=== PATIENT | male | born 1955 | race Hispanic/Latino ===

== ENCOUNTER 2017-09-10 06:47 | Day surgery (SDC) | payer MEDICARE, OTHER ==
[2017-09-03 09:20] VITALS: BMI 29.0
[2017-09-10] MEDS ORDERED: Propofol 10 mg/ml Inj (20 ML) ONE (08:01)
[2017-09-10] MEDS ORDERED: Sodium Chloride 0.9% 1,000 ML IV SCH ×2 (09:15→09:30)
[2017-09-10 09:59] VITALS: BP 125/75; PULSE 60; RESP 19; TEMP 97.6; O2SAT 97
== END 2017-09-10 10:19 | disposition home or self-care (01) ==
LOC: ENDO 06:47
PROVIDERS: ATTEND Specialist
DX: Z12.11 Encounter for screening for malignant neoplasm of colon (principal); D12.0 Benign neoplasm of cecum; K57.30 Diverticulosis of large intestine without perforation or abscess without bleeding; K64.8 Other hemorrhoids
CPT/HCPCS: 45381; 45385; 88305; J2001; J2704; J7040 ×2